=== PATIENT | female | born 1965 | race American Indian/Alaskan Native ===

== ENCOUNTER 2020-04-11 06:55 | Inpatient (IN) | payer OTHER ==
--- NOTE | 2020-04-11 08:14 | XRay Report ---
CHEST 2 VIEWS INDICATION / CLINICAL INFORMATION: SOB, CHF hx. COMPARISON: None available. FINDINGS: SUPPORT DEVICES: None. HEART / MEDIASTINUM: Minimally enlarged cardiac silhouette. LUNGS / PLEURA: Mild central pulmonary vascular congestion and hazy bibasilar opacities. No confluent infiltrates or pleural effusions. No pneumothorax. ADDITIONAL FINDINGS: No significant additional findings. IMPRESSION: 1. Findings consistent with CHF and mild interstitial edema. Signer Name: Pete Caldwell MD Signed: 04/11/2020 8:09 AM Workstation Name: [id number]
[2020-04-11] MEDS ORDERED: cloNIDine 0.2 MG TAB ONE (09:42)
[2020-04-11] MEDS ORDERED: cloNIDine 0.2 MG TAB PO ONE (09:44)
[2020-04-11 11:06] LABS: Basophils % (Auto) 0.5 % (0.0-1.8); Eosinophils % (Auto) 0.6 % (0.0-4.3); Hematocrit 39.2 % (30.3-42.9); Hemoglobin 13.2 gm/dl (10.1-14.3); Lymphocytes # (Auto) 0.9 K/mm3 (1.2-5.4); Lymphocytes % (Auto) 12.4 % (13.4-35.0); Mean Corpuscular HGB Conc 34 % (30-34); Mean Corpuscular Volume 93 fl (79-97); Monocytes # (Auto) 0.5 K/mm3 (0.0-0.8); Platelet Count 264 K/mm3 (140-440); Red Blood Count 4.22 M/mm3 (3.65-5.03); Red Cell Distribution Width 14.9 % (13.2-15.2)
--- NOTE | 2020-04-11 11:07 | Emergency Department Report ---
ED Shortness of Breath HPI - General Chief Complaint: Dyspnea/Respdistress Stated Complaint: SOB/HIGH BP Time Seen by Provider: 04/11/20 10:19 Source: patient Mode of arrival: Ambulatory Limitations: No Limitations - History of Present Illness Initial Comments: This is a 48-year-old female who is noncompliant with her medications. She states that she does not have a history of CHF or FL. However, at the same time she does admit that she was admitted for fluid in her lungs and uncontrolled hypertension at [facility] in April. Apparently she has not been to this facility before. She is not complaining of chest pain. She has typical symptoms of CHF which have been present for the last few weeks. They include PND, orthopnea, dyspnea on exertion and rest. She denies exposure to COVID-19. She is not coughing appreciably at all. She denies fever or chills. Chest x- ray obtained prior to my arrival is consistent with pulmonary edema. -: Gradual, week(s) Severity: moderate Quality: other (Not complaining of pain) Consistency: intermittent Worsens With: lying flat Known History Of: congestive heart failure, other (Hypertension) Context: medication noncompliance Associated Symptoms: denies other symptoms - Related Data Allergies Allergy/AdvReac Type Severity Reaction Status Date / Time lisinopril Allergy Angioedema Verified 04/11/20 09:48 ED Review of Systems ROS: Stated complaint: SOB/HIGH BP Other details as noted in HPI Constitutional: denies: chills, fever Eyes: denies: eye pain, eye discharge, vision change ENT: denies: ear pain, throat pain Respiratory: shortness of breath, SOB with exertion. denies: cough, wheezing Cardiovascular: edema (Was not aware but present), paroxysmal nocturnal dyspnea. denies: chest pain, palpitations Endocrine: no symptoms reported Gastrointestinal: denies: abdominal pain, nausea, diarrhea Genitourinary: denies: urgency, dysuria, discharge Musculoskeletal: denies: back pain, joint swelling, arthralgia Skin: denies: rash, lesions Neurological: denies: headache, weakness, paresthesias Psychiatric: denies: anxiety, depression Hematological/Lymphatic: denies: easy bleeding, easy bruising ED Past Medical Hx - Past Medical History Previous Medical History?: Yes Hx Hypertension: Yes Hx Congestive Heart Failure: Yes - Social History Smoking Status: Current Every Day Smoker Substance Use Type: None ED Physical Exam - General Limitations: No Limitations General appearance: alert, in no apparent distress, obese - Head Head exam: Present: atraumatic, normocephalic - Eye Eye exam: Present: normal appearance. Absent: scleral icterus - ENT ENT exam: Present: mucous membranes moist - Neck Neck exam: Present: normal inspection - Respiratory Respiratory exam: Present: rales (Mild basilar rhonchi). Absent: respiratory distress, accessory muscle use - Cardiovascular Cardiovascular Exam: Present: regular rate, normal rhythm. Absent: systolic murmur, diastolic murmur, rubs, gallop - GI/Abdominal GI/Abdominal exam: Present: soft, normal bowel sounds. Absent: distended, tenderness, guarding, rebound - Extremities Exam Extremities exam: Present: other (1+ lower leg edema) - Back Exam Back exam: Present: normal inspection - Neurological Exam Neurological exam: Present: alert, oriented X3, CN II-XII intact. Absent: motor sensory deficit - Psychiatric Psychiatric exam: Present: normal affect, normal mood - Skin Skin exam: Present: warm, dry, intact, normal color. Absent: rash ED Course Vital Signs 04/11/20 04/11/20 04/11/20 07:41 09:35 09:38 Temperature 97.7 F Pulse Rate 108 H Respiratory 18 24 Rate Blood Pressure 220/137 O2 Sat by Pulse 90 98 97 Oximetry 04/11/20 04/11/20 04/11/20 09:45 09:46 10:00 Temperature Pulse Rate 93 H 94 H 94 H Respiratory 26 H 24 Rate Blood Pressure 207/147 186/120 O2 Sat by Pulse 97 98 Oximetry 04/11/20 04/11/20 04/11/20 10:15 10:30 11:00 Temperature Pulse Rate 96 H 94 H 89 Respiratory 24 23 Rate Blood Pressure 179/121 164/106 O2 Sat by Pulse 96 98 Oximetry 04/11/20 04/11/20 11:30 12:14 Temperature Pulse Rate 86 85 Respiratory 20 Rate Blood Pressure 152/101 162/108 O2 Sat by Pulse 98 Oximetry - Reevaluation(s) Reevaluation #1: Patient was initially given clonidine prior to my encounter. She was later given Lasix aspirin and Nitropaste. She is noted to have a mildly elevated troponin. She is referred to the hospitalist service for further care and evaluation. 04/11/20 13:42 ED Medical Decision Making - Lab Data Result diagrams: 04/11/20 10:41 04/11/20 10:41 Laboratory Results - last 24 hr 04/11/20 04/11/20 04/11/20 10:41 10:41 10:41 WBC 7.3 RBC 4.22 Hgb 13.2 Hct 39.2 MCV 93 MCH 31 MCHC 34 RDW 14.9 Plt Count 264 Lymph % (Auto) 12.4 L Gaines % (Auto) 7.0 Eos % (Auto) 0.6 Baso % (Auto) 0.5 Lymph # (Auto) 0.9 L Gaines # (Auto) 0.5 Eos # (Auto) 0.0 Baso # (Auto) 0.0 Seg Neutrophils % 79.5 H Seg Neutrophils # 5.8 PT INR APTT Sodium 140 Potassium 4.1 Chloride 105.9 Carbon Dioxide 27 Anion Gap 11 BUN 17 Creatinine 1.1 Estimated GFR > 60 BUN/Creatinine Ratio 15 Glucose 80 Lactic Acid 0.90 Calcium 8.6 Magnesium 2.20 Total Bilirubin Direct Bilirubin Indirect Bilirubin AST ALT Alkaline Phosphatase Total Creatine Kinase CK-MB (CK-2) CK-MB (CK-2) Rel Index Troponin T NT-Pro-B Natriuret Pep Total Protein Albumin Albumin/Globulin Ratio Triglycerides Cholesterol LDL Cholesterol Direct HDL Cholesterol Cholesterol/HDL Ratio Urine Color Urine Turbidity Urine pH Ur Specific Levasy Urine Protein Urine Glucose (UA) Urine Ketones Urine Blood Urine Nitrite Urine Bilirubin Urine Urobilinogen Ur Leukocyte Esterase Urine WBC (Auto) Urine RBC (Auto) U Epithel Cells (Auto) Urine Mucus Urine Opiates Screen Urine Methadone Screen Ur Barbiturates Screen Ur Phencyclidine Scrn Ur Amphetamines Screen U Benzodiazepines Scrn Urine Cocaine Screen U Marijuana (THC) Screen Drugs of Abuse Note 04/11/20 04/11/20 04/11/20 10:41 10:41 11:28 WBC RBC Hgb Hct MCV MCH MCHC RDW Plt Count Lymph % (Auto) Gaines % (Auto) Eos % (Auto) Baso % (Auto) Lymph # (Auto) Gaines # (Auto) Eos # (Auto) Baso # (Auto) Seg Neutrophils % Seg Neutrophils # PT 13.6 INR 1.06 APTT 26.2 Sodium Potassium Chloride Carbon Dioxide Anion Gap BUN Creatinine Estimated GFR BUN/Creatinine Ratio Glucose Lactic Acid Calcium Magnesium Total Bilirubin 0.60 Direct Bilirubin < 0.2 Indirect Bilirubin 0.4 AST 33 ALT 28 Alkaline Phosphatase 90 Total Creatine Kinase 144 H CK-MB (CK-2) 3.9 CK-MB (CK-2) Rel Index 2.7 Troponin T 0.059 H NT-Pro-B Natriuret Pep 4521 H Total Protein 6.7 Albumin 3.7 L Albumin/Globulin Ratio 1.2 Triglycerides 135 Cholesterol 252 H LDL Cholesterol Direct 186 H HDL Cholesterol 54 Cholesterol/HDL Ratio 4.66 Urine Color Straw Urine Turbidity Clear Urine pH 7.0 Ur Specific Levasy 1.011 Urine Protein 100 mg/dl Urine Glucose (UA) 50 Urine Ketones Neg Urine Blood Neg Urine Nitrite Neg Urine Bilirubin Neg Urine Urobilinogen < 2.0 Ur Leukocyte Esterase Neg Urine WBC (Auto) 2.0 Urine RBC (Auto) 3.0 U Epithel Cells (Auto) 1.0 Urine Mucus Few Urine Opiates Screen Urine Methadone Screen Ur Barbiturates Screen Ur Phencyclidine Scrn Ur Amphetamines Screen U Benzodiazepines Scrn Urine Cocaine Screen U Marijuana (THC) Screen Drugs of Abuse Note 04/11/20 04/11/20 11:28 12:59 WBC RBC Hgb Hct MCV MCH MCHC RDW Plt Count Lymph % (Auto) Gaines % (Auto) Eos % (Auto) Baso % (Auto) Lymph # (Auto) Gaines # (Auto) Eos # (Auto) Baso # (Auto) Seg Neutrophils % Seg Neutrophils # PT INR APTT Sodium Potassium Chloride Carbon Dioxide Anion Gap BUN Creatinine Estimated GFR BUN/Creatinine Ratio Glucose Lactic Acid Calcium Magnesium 2.20 Total Bilirubin Direct Bilirubin Indirect Bilirubin AST ALT Alkaline Phosphatase Total Creatine Kinase CK-MB (CK-2) CK-MB (CK-2) Rel Index Troponin T NT-Pro-B Natriuret Pep Total Protein Albumin Albumin/Globulin Ratio Triglycerides Cholesterol LDL Cholesterol Direct HDL Cholesterol Cholesterol/HDL Ratio Urine Color Urine Turbidity Urine pH Ur Specific Levasy Urine Protein Urine Glucose (UA) Urine Ketones Urine Blood Urine Nitrite Urine Bilirubin Urine Urobilinogen Ur Leukocyte Esterase Urine WBC (Auto) Urine RBC (Auto) U Epithel Cells (Auto) Urine Mucus Urine Opiates Screen Negative Urine Methadone Screen Negative Ur Barbiturates Screen Negative Ur Phencyclidine Scrn Negative Ur Amphetamines Screen Negative U Benzodiazepines Scrn Negative Urine Cocaine Screen Negative U Marijuana (THC) Screen Positive Drugs of Abuse Note Disclamer - EKG Data EKG shows normal: sinus rhythm, axis, intervals, QRS complexes, ST-T waves Rate: tachycardia - EKG Data Interpretation: LVH (, Left atrial enlargement, deep Q in V2, poor R wave progression, usual differential) - Radiology Data Radiology results: image reviewed Consistent with pulmonary edema Critical care attestation.: If time is entered above; I have spent that time in minutes in the direct care of this critically ill patient, excluding procedure time. ED Disposition Clinical Impression: Accelerated hypertension, Elevated troponin Congestive heart failure Qualifiers: Heart failure type: combined systolic and diastolic Heart failure chronicity: acute Qualified Code(s): I50.41 - Acute combined systolic (congestive) and diastolic (congestive) heart failure Cardiomyopathy Qualifiers: Cardiomyopathy type: unspecified Qualified Code(s): I42.9 - Cardiomyopathy, unspecified Disposition: DC-09 OP ADMIT IP TO THIS HOSP Is pt being admited?: Yes Does the pt Need Aspirin: Yes Condition: Stable Instructions: Hypertension (ED) Time of Disposition: 13:45
[2020-04-11 11:22] LABS: INR 1.06 (0.87-1.13)
[2020-04-11 11:23] LABS: Partial Thromboplastin Time 26.2 Sec. (24.2-36.6)
[2020-04-11 11:31] LABS: BUN/Creatinine Ratio 15; Blood Urea Nitrogen 17 mg/dL (7-17); Calcium 8.6 mg/dL (8.4-10.2); Creatine Kinase MB 3.9 ng/mL (0.0-4.0); Hemolysis Index 29
[2020-04-11 11:34] LABS: Alanine Aminotransferase 28 units/L (7-56); Albumin 3.7 g/dL (3.9-5)
[2020-04-11 11:43] LABS: Bilirubin,Direct < 0.2 mg/dL (0-0.2)
[2020-04-11 11:45] LABS: Chol/HDL Ratio 4.66 %; HDL Cholesterol 54 mg/dL (40-59); LDL Cholesterol,Direct 186 mg/dL (50-130)
[2020-04-11 11:53] LABS: Bilirubin,Urine NEG (Negative); Blood,Urine NEG (Negative); Color,Urine Straw (Yellow); Mucus,Urine FEW /HPF; Urobilinogen,Urine < 2.0 mg/dL (<2.0)
[2020-04-11] MEDS ORDERED: NITROGLYCERIN 2% OINT 1 GM TP ONE (12:03)
[2020-04-11] MEDS ORDERED: ASPIRIN 325 MG TAB PO ONE (12:03)
[2020-04-11] MEDS ORDERED: FUROSEMIDE 40 MG/4 ML INJ IV ONE (12:03)
[2020-04-11 12:08] LABS: Amphetamine Screen,Urine Negative; Benzodiazepines Screen,Urine Negative; Cocaine Screen,Urine Negative; Methadone Screen,Urine Negative; Opiate Screen,Urine Negative
[2020-04-11 12:19] LABS: Cannabinoid Screen,Urine Positive
--- NOTE | 2020-04-11 12:49 | History and Physical Report ---
History of Present Illness Chief complaint: I feel short of breath and my legs are swollen History of present illness: 48 YO Female with Obesity Hypoventilation Syndrome, HTN, Cardiomyopathy, Nicotine Dependence presents to ED for evaluation. Patient states that she has been "feeling sick" for the past 2 weeks. Patient acknowledges shortness of breath, leg edema, orthopnea, paroxysmal nocturnal dyspnea, subjective weight gain over the past 2 weeks with persistent symptoms over the same timeframe. Patient also acknowledges medication as well as dietary noncompliance. Patient transported to [facility] via private vehicle for further care and evaluation of the aforementioned symptoms. Patient seen and evaluated in the emergency department. All lab and imaging studies reviewed. Patient was found to have a blood pressure of 220/137 which is consistent with uncontrolled hypertension. Patient also found to have clinical symptoms consistent with CHF decompensation, as well as type II non-ST elevation AL. Patient admitted to telemetry and initiated on CHF protocol. Cardiology team consulted in ED. Patient denies fever, chills, chest pain, palpitations, productive cough, skin rash, recent ill contacts, or known exposure to COVID-19. No prior admission for review. All medication listed at time of admission has been reconciled. Past History Past Medical History: hypertension, other (See HPI) Past Surgical History: No surgical history, Other (Reviewed) Social history: , smoking Family history: hypertension Medications and Allergies Allergies Allergy/AdvReac Type Severity Reaction Status Date / Time lisinopril Allergy Angioedema Verified 04/11/20 09:48 Review of Systems Constitutional: weight gain, weakness, no weight loss, no fever, no chills, no sweats Ears, nose, mouth and throat: no ear pain, no ear discharge, no tinnitis, no decreased hearing, no nose pain Breasts: no change in shape, no swelling, no mass Cardiovascular: orthopnea, shortness of breath, dyspnea on exertion, high blood pressure, decreased exercise tolerance, no chest pain, no palpitations, no rapid/irregular heart beat Respiratory: no excessive sputum, no hemoptysis Gastrointestinal: no abdominal pain, no nausea, no vomiting, no diarrhea, no constipation Genitourinary Female: no pelvic pain, no flank pain, no dysuria, no urinary frequency, no urgency Rectal: no pain, no incontinence, no bleeding Musculoskeletal: no neck stiffness, no neck pain, no shooting arm pain, no arm numbness/tingling Integumentary: no rash, no pruritis, no redness, no sores, no wounds Neurological: no head injury, no paralysis, no weakness, no parathesias, no tingling, no seizures Psychiatric: no anxiety, no memory loss, no change in sleep habits, no sleep disturbances, no hypersomnia, no suicidal ideation, no disorientation, no hallucinations Endocrine: no cold intolerance, no heat intolerance, no polyphagia, no excessive thirst, no polydipsia, no polyuria Hematologic/Lymphatic: no easy bruising, no lymphedema Allergic/Immunologic: no urticaria, no allergic rhinitis Exam - Constitutional Vitals: Temp Pulse Resp BP Pulse Ox 97.7 F 85 20 162/108 98 04/11/20 07:41 04/11/20 12:14 04/11/20 11:30 04/11/20 12:14 04/11/20 11:30 General appearance: Present: mild distress, obese - EENT Eyes: Present: PERRL ENT: hearing intact, clear oral mucosa - Neck Neck: Present: supple, normal ROM - Respiratory Respiratory effort: labored, accessory muscle use, stridor Respiratory: bilateral: diminished, rales - Cardiovascular Heart Sounds: Present: S1 & S2. Absent: rub, click - Extremities Extremities: pulses symmetrical Extremity abnormal: edema Peripheral Pulses: within normal limits - Abdominal General gastrointestinal: Present: soft, non-tender, non-distended, normal bowel sounds Female genitourinary: Present: normal - Integumentary Integumentary: Present: clear, warm, dry - Musculoskeletal Musculoskeletal: gait normal, strength equal bilaterally - Psychiatric Psychiatric: appropriate mood/affect, intact judgment & insight - Neurologic Neurologic: CNII-XII intact, moves all extremities HEART Score - HEART Score Troponin: Troponin T 0.059 ng/mL (0.00-0.029) H 04/11/20 10:41 Results - Labs CBC & Chem 7: 04/11/20 10:41 04/11/20 10:41 Labs: Abnormal lab results 04/11/20 04/11/20 Range/Units 10:41 10:41 Lymph % (Auto) 12.4 L (13.4-35.0) % Lymph # (Auto) 0.9 L (1.2-5.4) K/mm3 Seg Neutrophils % 79.5 H (40.0-70.0) % Total Creatine Kinase 144 H (30-135) units/L Troponin T 0.059 H (0.00-0.029) ng/mL NT-Pro-B Natriuret Pep 4521 H (0-900) pg/mL Albumin 3.7 L (3.9-5) g/dL Cholesterol 252 H (50-199) mg/dL LDL Cholesterol Direct 186 H (50-130) mg/dL Assessment and Plan - Patient Problems (1) CHF (congestive heart failure) Current Visit: Yes Status: Acute Qualifiers: Heart failure chronicity: acute Plan to address problem: Strict I's/O, monitor urine output every shift, daily weight, afterload reduction, monitor fluid balance, BNP, thyroid panel, magnesium level, echocardiogram ordered and pending at time of admission, cardiology team consulted. (2) Non-ST elevation AL (NSTEMI) Current Visit: Yes Status: Acute Plan to address problem: Type II non-ST elevation AL: Admit to telemetry, supportive care, pain control, continue medical management. (3) Nicotine dependence Current Visit: Yes Status: Acute Qualifiers: Nicotine product type: cigarettes Substance use status: in withdrawal Qualified Code(s): F17.213 - Nicotine dependence, cigarettes, with withdrawal Plan to address problem: Supportive care, behavior change counseling, +15 minutes (4) Obesity hypoventilation syndrome Current Visit: Yes Status: Acute Plan to address problem: Balanced diet, increase physical activity at discharge, outpatient pulmonary follow-up for sleep study, (5) Accelerated hypertension Current Visit: Yes Status: Acute Plan to address problem: Monitor blood pressure every shift, continue medical management. (6) DVT prophylaxis Current Visit: Yes Status: Acute Plan to address problem: SCD to bilateral lower extremities while in bed, patient is ambulatory
[2020-04-11] MEDS ORDERED: ACETAMINOPHEN 325 MG TAB PO PRN (12:50)
[2020-04-11] MEDS ORDERED: ALBUTEROL 2.5 MG/3 ML NEBU IH PRN (12:50)
[2020-04-11] MEDS ORDERED: ONDANSETRON 4 MG/2 ML INJ IV PRN (12:50)
[2020-04-11 13:50] LABS: Free T4 (Free Thyroxine) 1.13 ng/dL (0.76-1.46)
--- NOTE | 2020-04-11 16:15 | Consultation ---
History of Present Illness Consult date: 04/11/20 Requesting physician: MILTON CHOWDHURY Consult reason: congestive heart failure History of present illness: Pt is a 54 y.o. AA female, previously unknown to our practice, who presented with complaints of SOB x 3 days prior to arrival. Pt states SOB became severe this AM while she was driving to work, prompting her to seek further care. SOB worse with exertion. Pt also reports orthopnea/PND. Denies cough or recent fever/chills. No additional cardiac complaints. Of note, pt reports she was told at an outside medical facility over a year ago that she had heart failure. Pt states "I think my fraction is low." She does not regularly see a [facility]. No previous cardiac work-up available for review. BNP elevated at admission. CXR reveals mild interstitial edema. Also of note, BP significantly elevated upon arrival. Pt reports she has been out of her home medications for approximately 5 days because she no longer has access to her PCP. Past History Past Medical History: heart failure, hypertension Social history: denies: smoking, alcohol abuse Family history: hypertension Medications and Allergies Allergies Allergy/AdvReac Type Severity Reaction Status Date / Time lisinopril Allergy Angioedema Verified 04/11/20 09:48 Active Meds: Active Medications Acetaminophen (Tylenol) 650 mg PO Q4H PRN PRN Reason: Pain MILD(1-3)/Fever >100.5/[place] Albuterol (Proventil) 2.5 mg IH Q4HRT PRN PRN Reason: Shortness Of Breath Furosemide (Lasix) 20 mg IV BID@0600,1800 [facility] Metoprolol Tartrate (Metoprolol) 12.5 mg PO BID JORDYN Ondansetron HCl (Zofran) 4 mg IV Q8H PRN PRN Reason: Nausea And Vomiting Sodium Chloride (Sodium Chloride Flush Syringe 10 Ml) 10 ml IV BID JORDYN Sodium Chloride (Sodium Chloride Flush Syringe 10 Ml) 10 ml IV PRN PRN PRN Reason: LINE FLUSH Review of Systems Constitutional: no fever, no chills, no sweats Ears, nose, mouth and throat: no nasal congestion, no sore throat Cardiovascular: orthopnea, shortness of breath, dyspnea on exertion, paroxysmal nocturnal dyspnea, no chest pain, no palpitations, no edema, no syncope, no lightheadedness Respiratory: shortness of breath, dyspnea on exertion, no cough Gastrointestinal: no abdominal pain, no nausea, no vomiting, no diarrhea, no constipation Genitourinary Female: no pelvic pain, no flank pain, no dysuria Musculoskeletal: no neck stiffness, no neck pain, no myalgias Integumentary: no rash, no wounds Neurological: no head injury, no paralysis, no weakness, no parathesias, no numbness, no tingling, no seizures, no syncope, no vertigo, no headaches Endocrine: no cold intolerance, no heat intolerance, no polydipsia, no polyuria Hematologic/Lymphatic: no easy bruising, no easy bleeding Allergic/Immunologic: no urticaria Physical Examination Last Vital Signs Temp 98.0 F 04/11/20 15:39 Pulse 87 04/11/20 15:39 Resp 18 04/11/20 15:39 BP 163/102 04/11/20 15:39 Pulse Ox 96 04/11/20 15:39 General appearance: no acute distress HEENT: Positive: EOMI, Normocephaly, Mucus Membranes Moist Neck: Positive: neck supple, trachea midline Cardiac: Positive: Reg Rate and Rhythm, S1/S2 Lungs: Positive: clear to auscultation Neuro: Positive: Grossly Intact Abdomen: Positive: Soft, Active Bowel Sounds. Negative: Tender Skin: Negative: Rash Musculoskeletal: No Pain Extremities: Present: upper extr. pulses, lower extr. pulses. Absent: edema Results 04/11/20 10:41 04/11/20 10:41 Cardiac Enzymes 04/11/20 Range/Units 10:41 AST 33 (5-40) units/L CK-MB (CK-2) 3.9 (0.0-4.0) ng/mL Coagulation 04/11/20 Range/Units 10:41 PT 13.6 (12.2-14.9) Sec. INR 1.06 (0.87-1.13) APTT 26.2 (24.2-36.6) Sec. Lipids 04/11/20 Range/Units 10:41 Triglycerides 135 (2-149) mg/dL Cholesterol 252 H (50-199) mg/dL HDL Cholesterol 54 (40-59) mg/dL Cholesterol/HDL Ratio 4.66 % CBC 04/11/20 Range/Units 10:41 WBC 7.3 (4.5-11.0) K/mm3 RBC 4.22 (3.65-5.03) M/mm3 Hgb 13.2 (10.1-14.3) gm/dl Hct 39.2 (30.3-42.9) % Plt Count 264 (140-440) K/mm3 Lymph # (Auto) 0.9 L (1.2-5.4) K/mm3 [place] # (Auto) 0.5 (0.0-0.8) K/mm3 Eos # (Auto) 0.0 (0.0-0.4) K/mm3 Baso # (Auto) 0.0 (0.0-0.1) K/mm3 Comprehensive Metabolic Panel 04/11/20 04/11/20 Range/Units 10:41 10:41 Sodium 140 (137-145) mmol/L Potassium 4.1 (3.6-5.0) mmol/L Chloride 105.9 (98-107) mmol/L Carbon Dioxide 27 (22-30) mmol/L BUN 17 (7-17) mg/dL Creatinine 1.1 (0.6-1.2) mg/dL Glucose 80 (65-100) mg/dL Calcium 8.6 (8.4-10.2) mg/dL Direct Bilirubin < 0.2 (0-0.2) mg/dL Indirect Bilirubin 0.4 mg/dL AST 33 (5-40) units/L ALT 28 (7-56) units/L Alkaline Phosphatase 90 (35-129) units/L Total Protein 6.7 (6.3-8.2) g/dL Albumin 3.7 L (3.9-5) g/dL - Imaging and Cardiology Echo: pending EKG: report reviewed, image reviewed - EKG Interpretation EKG: no acute changes EKG interpretations - EKG Sinus rhythms and dysrhythmias: sinus tachycardia Chamber hypertrophy or enlargement: left atrial enlargement Repolarization changes or abnormalities: nonspecific abnormality, ST segment, and/or T wave Assessment and Plan Obtain echo. Continue IV Lasix BID with strict I/Os. Closely monitor renal indices and electrolytes. Will optimize antihypertensive regimen. Initiate statin therapy. Pt seen in conjunction with Dr. Burris, who agrees with the assessment and plan of care. - Patient Problems (1) Acute HFrEF (heart failure with reduced ejection fraction) Current Visit: Yes Status: Acute (2) Cardiomyopathy Current Visit: Yes Status: Chronic Qualifiers: Cardiomyopathy type: unspecified Qualified Code(s): I42.9 - Cardiomyopathy, unspecified (3) Accelerated hypertension Current Visit: Yes Status: Acute (4) HLD (hyperlipidemia) Current Visit: Yes Status: Chronic Qualifiers: Hyperlipidemia type: mixed hyperlipidemia Qualified Code(s): E78.2 - Mixed hyperlipidemia
[2020-04-11] MEDS: FUROSEMIDE 20 MG/2 ML INJ IV SCH (17:40)
[2020-04-11] MEDS: LOSARTAN 25 MG TAB PO SCH (17:40)
[2020-04-11] MEDS: METOPROLOL TARTRATE 25 MG TAB PO SCH (21:48)
[2020-04-12] MEDS: FUROSEMIDE 20 MG/2 ML INJ IV SCH (06:05)
--- NOTE | 2020-04-12 10:24 | Progress Note ---
Assessment and Plan tte reviewed - EF 30-35%, mild to mod LVH, impaired relaxation, mild TR, mild MN. Pt reports diagnosis of HF with CMP last year at [facility]. She reports undergoing stress testing during that time. Will attempt to obtain medical records. Will plan for stress testing as OP once medically stabilized. Convert IV lasix to PO lasix today. F/u BMP in AM. Cont coreg and losartan, titrate as tolerated. Anticipate d/c tomorrow AM. Pt seen in conjunction with Dr. Ibrahim who agrees with the assessment and plan of care. - Patient Problems (1) Acute HFrEF (heart failure with reduced ejection fraction) Current Visit: Yes Status: Acute (2) Cardiomyopathy Current Visit: Yes Status: Chronic Qualifiers: Cardiomyopathy type: unspecified Qualified Code(s): I42.9 - Cardiomyopathy, unspecified (3) Accelerated hypertension Current Visit: Yes Status: Acute (4) HLD (hyperlipidemia) Current Visit: Yes Status: Chronic Qualifiers: Hyperlipidemia type: mixed hyperlipidemia Qualified Code(s): E78.2 - Mixed hyperlipidemia Subjective Date of service: 04/12/20 Principal diagnosis: HF Interval history: pt resting in bed, feeling a little better. tele reviewed - in SR HR 70s with 3 beat NSVT noted overnight, pt asymptomatic. Objective Last Vital Signs Temp 98.6 F 04/12/20 07:35 Pulse 79 04/12/20 07:35 Resp 18 04/12/20 07:35 BP 161/94 04/12/20 07:35 Pulse Ox 97 04/12/20 07:35 - Physical Examination General: No Apparent Distress HEENT: Positive: EOMI, Normocephaly, Mucus Membranes Moist Neck: Positive: neck supple, trachea midline Cardiac: Positive: Reg Rate and Rhythm, S1/S2 Lungs: Positive: Decreased Breath Sounds Neuro: Positive: Grossly Intact Abdomen: Positive: Soft, Active Bowel Sounds. Negative: Tender Skin: Negative: Rash Musculoskeletal: No Pain Extremities: Present: upper extr. pulses, lower extr. pulses. Absent: edema - Labs and Meds Cardiac Enzymes 04/11/20 Range/Units 10:41 AST 33 (5-40) units/L CK-MB (CK-2) 3.9 (0.0-4.0) ng/mL Coagulation 04/11/20 Range/Units 10:41 PT 13.6 (12.2-14.9) Sec. INR 1.06 (0.87-1.13) APTT 26.2 (24.2-36.6) Sec. Lipids 04/11/20 Range/Units 10:41 Triglycerides 135 (2-149) mg/dL Cholesterol 252 H (50-199) mg/dL HDL Cholesterol 54 (40-59) mg/dL Cholesterol/HDL Ratio 4.66 % CBC 04/11/20 Range/Units 10:41 WBC 7.3 (4.5-11.0) K/mm3 RBC 4.22 (3.65-5.03) M/mm3 Hgb 13.2 (10.1-14.3) gm/dl Hct 39.2 (30.3-42.9) % Plt Count 264 (140-440) K/mm3 Lymph # (Auto) 0.9 L (1.2-5.4) K/mm3 [place] # (Auto) 0.5 (0.0-0.8) K/mm3 Eos # (Auto) 0.0 (0.0-0.4) K/mm3 Baso # (Auto) 0.0 (0.0-0.1) K/mm3 Comprehensive Metabolic Panel 04/11/20 04/11/20 Range/Units 10:41 10:41 Sodium 140 (137-145) mmol/L Potassium 4.1 (3.6-5.0) mmol/L Chloride 105.9 (98-107) mmol/L Carbon Dioxide 27 (22-30) mmol/L BUN 17 (7-17) mg/dL Creatinine 1.1 (0.6-1.2) mg/dL Glucose 80 (65-100) mg/dL Calcium 8.6 (8.4-10.2) mg/dL Direct Bilirubin < 0.2 (0-0.2) mg/dL Indirect Bilirubin 0.4 mg/dL AST 33 (5-40) units/L ALT 28 (7-56) units/L Alkaline Phosphatase 90 (35-129) units/L Total Protein 6.7 (6.3-8.2) g/dL Albumin 3.7 L (3.9-5) g/dL - Imaging and Cardiology EKG: report reviewed, image reviewed Echo: report reviewed - Telemetry EKG Rhythm: Sinus Rhythm - EKG Sinus rhythms and dysrhythmias: sinus tachycardia Chamber hypertrophy or enlargement: left atrial enlargement Repolarization changes or abnormalities: nonspecific abnormality, ST segment, and/or T wave
[2020-04-12] MEDS ORDERED: FUROSEMIDE 20 MG/2 ML INJ IV SCH (10:25)
[2020-04-12] MEDS: LOSARTAN 25 MG TAB PO SCH ×2 (11:01→15:24)
[2020-04-12] MEDS: carvediloL 6.25 MG TAB PO SCH ×2 (11:01→21:36)
[2020-04-12] MEDS: ASPIRIN 81 MG TAB CHEW PO SCH (11:01)
[2020-04-12] MEDS: METOPROLOL TARTRATE 25 MG TAB PO SCH (15:18)
--- NOTE | 2020-04-12 17:07 | Progress Note ---
Assessment and Plan Assessment and Plan - Patient Problems (1) CHF (congestive heart failure) exacerbation Current Visit: Yes Status: Acute Qualifiers: Heart failure chronicity: acute Plan to address problem: Symptomatically better (2) Non-ST elevation [place] (NSTEMI) Current Visit: Yes Status: Acute Plan to address problem: Type II non-ST elevation [place]: Admit to telemetry, supportive care, pain control, continue medical management. Cardiology consult appreciated (3) Nicotine dependence Current Visit: Yes Status: Acute Qualifiers: Nicotine product type: cigarettes Substance use status: in withdrawal Qualified Code(s): F17.213 - Nicotine dependence, cigarettes, with withdrawal Plan to address problem: Supportive care, behavior change counseling, +15 minutes (4) Obesity hypoventilation syndrome Current Visit: Yes Status: Acute Plan to address problem: Balanced diet, increase physical activity at discharge, outpatient pulmonary follow-up for sleep study, (5) Accelerated hypertension Current Visit: Yes Status: Acute Plan to address problem: Monitor blood pressure every shift, continue medical management. (6) DVT prophylaxis Current Visit: Yes Status: Acute Plan to address problem: SCD to bilateral lower extremities while in bed, patient is ambulatory Subjective Date of service: 04/12/20 Principal diagnosis: CHF exacerbation Interval history: History of present illness: 48 YO Female with Obesity Hypoventilation Syndrome, HTN, Cardiomyopathy, Nicotine Dependence presents to ED for evaluation. Patient states that she has been "feeling sick" for the past 2 weeks. Patient acknowledges shortness of breath, leg edema, orthopnea, paroxysmal nocturnal dyspnea, subjective weight gain over the past 2 weeks with persistent symptoms over the same timeframe. Patient also acknowledges medication as well as dietary noncompliance. Patient transported to [facility] via private vehicle for further care and evaluation of the aforementioned symptoms. Patient seen and evaluated in the emergency department. All lab and imaging studies reviewed. Patient was found to have a blood pressure of 220/137 which is consistent with uncontrolled hypertension. Patient also found to have clinical symptoms consistent with CHF decompensation, as well as type II non-ST elevation [place]. Patient admitted to telemetry and initiated on CHF protocol. Cardiology team consulted in ED. Patient denies fever, chills, chest pain, palpitations, productive cough, skin rash, recent ill contacts, or known exposure to COVID-19. No prior admission for review. All medication listed at time of admission has been reconciled. Symptomatically better Objective - Constitutional Vitals: Vital Signs - 12hr 04/12/20 04/12/20 04/12/20 05:11 05:21 05:31 Temperature Pulse Rate Respiratory Rate Blood Pressure 153/73 153/73 153/73 O2 Sat by Pulse 88 96 96 Oximetry 04/12/20 04/12/20 04/12/20 05:41 05:51 06:01 Temperature Pulse Rate Respiratory Rate Blood Pressure 153/73 153/73 153/73 O2 Sat by Pulse 96 98 95 Oximetry 04/12/20 04/12/20 04/12/20 06:11 06:21 06:31 Temperature Pulse Rate Respiratory Rate Blood Pressure 153/73 153/73 153/73 O2 Sat by Pulse 98 96 95 Oximetry 04/12/20 04/12/20 04/12/20 06:41 06:51 07:01 Temperature Pulse Rate Respiratory Rate Blood Pressure 153/73 153/73 153/73 O2 Sat by Pulse 94 94 94 Oximetry 04/12/20 04/12/20 04/12/20 07:11 07:21 07:35 Temperature 98.6 F Pulse Rate 79 Respiratory 18 Rate Blood Pressure 153/73 153/73 161/94 O2 Sat by Pulse 95 93 97 Oximetry 04/12/20 04/12/20 08:00 11:01 Temperature Pulse Rate 79 79 Respiratory Rate Blood Pressure 161/64 O2 Sat by Pulse Oximetry General appearance: Present: mild distress, well-nourished - EENT Eyes: PERRL, EOM intact ENT: hearing intact, clear oral mucosa Ears: bilateral: normal - Neck Neck: supple, normal ROM - Respiratory Respiratory effort: normal Respiratory: bilateral: CTA - Breasts Breasts: normal - Cardiovascular Heart rate: 80 Rhythm: regular Heart Sounds: Present: S1 & S2. Absent: gallop, rub Extremities: pulses intact, No edema, normal color, Full ROM - Gastrointestinal General gastrointestinal: Present: soft, non-tender, non-distended, normal bowel sounds - Genitourinary Female genitourinary: normal - Integumentary Integumentary: clear, warm, dry - Musculoskeletal Musculoskeletal: 1, strength equal bilaterally - Neurologic Neurologic: moves all extremities - Psychiatric Psychiatric: memory intact, appropriate mood/affect, intact judgment & insight - Allied health notes Allied health notes reviewed: nursing, case management - Labs CBC & Chem 7: 04/11/20 10:41 04/13/20 07:01 HEART Score - HEART Score Troponin: Troponin T 0.059 ng/mL (0.00-0.029) H 04/11/20 10:41
[2020-04-12] MEDS ORDERED: FUROSEMIDE 40 MG/4 ML INJ IV SCH (18:00)
[2020-04-13] MEDS: ASPIRIN 81 MG TAB CHEW PO SCH (09:42)
[2020-04-13] MEDS: carvediloL 6.25 MG TAB PO SCH (09:42)
[2020-04-13] MEDS: LOSARTAN 25 MG TAB PO SCH (09:42)
--- NOTE | 2020-04-13 09:46 | Progress Note ---
Assessment and Plan Pt reports diagnosis of HF with CMP last year at [facility]. She reports undergoing stress testing during that time. Unable to obtain medical records thus far. Will plan for stress testing as OP. Optimize BPs - increase coreg, cont losartan. Currently stable cardiac status. Pt may discharge from cardiology standpoint on present cardiac regimen. Follow up in our [place] office with Dr. Burris on 05/03/2020 @ 12:15PM. Pt seen in conjunction with Dr. Ibrahim who agrees with the assessment and plan of care. - Patient Problems (1) Acute HFrEF (heart failure with reduced ejection fraction) Current Visit: Yes Status: Acute (2) Cardiomyopathy Current Visit: Yes Status: Chronic Qualifiers: Cardiomyopathy type: unspecified Qualified Code(s): I42.9 - Cardiomyopathy, unspecified (3) Accelerated hypertension Current Visit: Yes Status: Acute (4) HLD (hyperlipidemia) Current Visit: Yes Status: Chronic Qualifiers: Hyperlipidemia type: mixed hyperlipidemia Qualified Code(s): E78.2 - Mixed hyperlipidemia Subjective Date of service: 04/13/20 Principal diagnosis: HF Interval history: pt resting up in chair, no current complaints. tele reviewed - in SR HR 70s with 3 beat NSVT noted overnight, pt asymptomatic. Objective Last Vital Signs Temp 98.2 F 04/13/20 07:31 Pulse 75 04/13/20 07:31 Resp 18 04/13/20 07:31 BP 165/92 04/13/20 07:31 Pulse Ox 99 04/13/20 07:31 - Physical Examination General: No Apparent Distress HEENT: Positive: EOMI, Normocephaly, Mucus Membranes Moist Neck: Positive: neck supple, trachea midline Cardiac: Positive: Reg Rate and Rhythm, S1/S2 Lungs: Positive: Decreased Breath Sounds Neuro: Positive: Grossly Intact Abdomen: Positive: Soft, Active Bowel Sounds. Negative: Tender Skin: Negative: Rash Musculoskeletal: No Pain Extremities: Present: upper extr. pulses, lower extr. pulses. Absent: edema - Imaging and Cardiology EKG: report reviewed, image reviewed Echo: report reviewed (EF 30-35%, mild to mod LVH, impaired relaxation, mild TR, mild AL. ) - Telemetry EKG Rhythm: Sinus Rhythm - EKG Sinus rhythms and dysrhythmias: sinus tachycardia Chamber hypertrophy or enlargement: left atrial enlargement Repolarization changes or abnormalities: nonspecific abnormality, ST segment, and/or T wave
[2020-04-13] MEDS ORDERED: carvediloL 6.25 MG TAB PO SCH (09:48)
[2020-04-13] MEDS ORDERED: carvediloL 12.5 MG TAB PO SCH (10:00)
[2020-04-13] MEDS ORDERED: FUROSEMIDE 40 MG TAB PO SCH (10:00)
[2020-04-13 10:41] LABS: BUN/Creatinine Ratio 19; Blood Urea Nitrogen 21 mg/dL (7-17); Calcium 8.8 mg/dL (8.4-10.2); Hemolysis Index 3
--- NOTE | 2020-04-13 19:48 | Discharge Summary ---
Providers - Providers Date of Admission: 04/11/20 13:16 Date of discharge: 04/13/20 Attending physician: HARPAL KRISHNA 04/11/20 12:50 Consult to Physician [CONS] Routine Comment: Consulting Provider: CHIQUI CAMPBELL Physician Instructions: Reason For Exam: chf Primary care physician: [employer] Hospitalization Condition: Stable Hospital course: Subjective Date of service: 04/13/2020 Principal diagnosis: CHF exacerbation Interval history: History of present illness: 48 YO Female with Obesity Hypoventilation Syndrome, HTN, Cardiomyopathy, Nicotine Dependence presents to ED for evaluation. Patient states that she has been "feeling sick" for the past 2 weeks. Patient acknowledges shortness of breath, leg edema, orthopnea, paroxysmal nocturnal dyspnea, subjective weight gain over the past 2 weeks with persistent symptoms over the same timeframe. Patient also acknowledges medication as well as dietary noncompliance. Patient transported to [facility] via private vehicle for further care and evaluation of the aforementioned symptoms. Patient seen and evaluated in the emergency department. All lab and imaging studies reviewed. Patient was found to have a blood pressure of 220/137 which is consistent with uncontrolled hypertension. Patient also found to have clinical symptoms consistent with CHF decompensation, as well as type II non-ST elevation CT. Patient admitted to telemetry and initiated on CHF protocol. Cardiology team consulted in ED. Patient denies fever, chills, chest pain, palpitations, productive cough, skin rash, recent ill contacts, or known exposure to COVID-19. No prior admission for review. All medication listed at time of admission has been reconciled. Symptomatically better Stress test as outpatient As follow-up appointment Dr. Albright on 05/03/2020 (1) CHF (congestive heart failure) exacerbation Current Visit: Yes Status: Acute Qualifiers: Heart failure chronicity: acute Plan to address problem: Symptomatically better (2) Non-ST elevation CT (NSTEMI) Current Visit: Yes Status: Acute Plan to address problem: Type II non-ST elevation CT: Admit to telemetry, supportive care, pain control, continue medical management. Cardiology consult appreciated (3) Nicotine dependence Current Visit: Yes Status: Acute Qualifiers: Nicotine product type: cigarettes Substance use status: in withdrawal Qualified Code(s): F17.213 - Nicotine dependence, cigarettes, with withdrawal Plan to address problem: Supportive care, behavior change counseling, +15 minutes (4) Obesity hypoventilation syndrome Current Visit: Yes Status: Acute Plan to address problem: Balanced diet, increase physical activity at discharge, outpatient pulmonary follow-up for sleep study, (5) Accelerated hypertension Current Visit: Yes Status: Acute Plan to address problem: Monitor blood pressure every shift, continue medical management. (6) DVT prophylaxis Current Visit: Yes Status: Acute Plan to address problem: SCD to bilateral lower extremities while in bed, patient is ambulatory Disposition: DC-01 TO HOME OR SELFCARE Time spent for discharge: 35 minutes - Discharge Diagnoses (1) Acute HFrEF (heart failure with reduced ejection fraction) Status: Acute (2) Congestive heart failure Status: Acute Qualifiers: Heart failure type: combined systolic and diastolic Heart failure chronicity: acute Qualified Code(s): I50.41 - Acute combined systolic (congestive) and diastolic (congestive) heart failure (3) Elevated troponin Status: Acute (4) Non-ST elevation CT (NSTEMI) Status: Acute Core Measure Documentation - Palliative Care Palliative Care/ Comfort Measures: Not Applicable - Core Measures Any of the following diagnoses?: none Exam - Constitutional Vitals: Temp Pulse Resp BP Pulse Ox 98.2 F 71 18 165/92 99 04/13/20 07:31 04/13/20 16:00 04/13/20 07:31 04/13/20 07:31 04/13/20 07:31 General appearance: Present: no acute distress, well-nourished - EENT Eyes: Present: PERRL ENT: hearing intact, clear oral mucosa - Neck Neck: Present: supple, normal ROM - Respiratory Respiratory effort: normal Respiratory: bilateral: CTA - Cardiovascular Heart rate: 78 Rhythm: regular Heart Sounds: Present: S1 & S2. Absent: rub, click - Extremities Extremities: pulses symmetrical, No edema Peripheral Pulses: within normal limits - Abdominal General gastrointestinal: Present: soft, non-tender, non-distended, normal bowel sounds Female genitourinary: Present: normal - Integumentary Integumentary: Present: clear, warm, dry - Musculoskeletal Musculoskeletal: gait normal, strength equal bilaterally - Psychiatric Psychiatric: appropriate mood/affect, intact judgment & insight - Neurologic Neurologic: CNII-XII intact, moves all extremities - Allied Health Allied health notes reviewed: nursing, case management Plan Activity: no restrictions Diet: low fat, low cholesterol, low salt Follow up with: PRIMARY CAREMD [Primary Care Provider] - 3-5 Days ROSE NEWSOME MD [Staff Physician] - 7 Days
[2020-04-13 20:06] VITALS: BP 194/135
== END 2020-04-13 20:55 | disposition home or self-care (01) | DRG 281 ==
LOC: ED 06:55 → 4A 13:16 → INTOOBSV 13:16 → 4A 14:19 → OBSVTOIN 04-12 09:00
PROVIDERS: ADMIT Internal Medicine; ATTEND Internal Medicine
DX: I11.0 Hypertensive heart disease with heart failure (principal); I21.A1 Myocardial infarction type 2; E66.2 Morbid (severe) obesity with alveolar hypoventilation; F17.213 Nicotine dependence, cigarettes, with withdrawal; I50.43 Acute on chronic combined systolic (congestive) and diastolic (congestive) heart failure; I42.9 Cardiomyopathy, unspecified; Z88.8 Allergy status to other drugs, medicaments and biological substances; Z68.33 Body mass index [BMI] 33.0-33.9, adult; Z82.49 Family history of ischemic heart disease and other diseases of the circulatory system; E78.2 Mixed hyperlipidemia
CPT/HCPCS: 36415; 71046; 80048; 80061; 80076; 80307; 81001; 82140; 82550; 82553; 83735; 83880; 84439; 84443; 84484; 85025; 85610; 85730; 93005; 93306; 96361; 96365; 96366; 96367; 96368; 96375; 96376; 99406; G0378; A9270-GY; J1940